=== PATIENT | female | born 1940 | race Hispanic/Latino ===

== ENCOUNTER → 2018-07-12 | Outpatient (CLI) | payer OTHER ==
[~2018-07-12] MED LIST: IOHEXOL-350 75 ML VIAL IV ONE
== END | disposition home or self-care (01) ==
LOC: RAH 10:00
PROVIDERS: ATTEND Internal Medicine Gastroenterology
DX: K44.9 Diaphragmatic hernia without obstruction or gangrene (principal); Z90.49 Acquired absence of other specified parts of digestive tract
CPT/HCPCS: 74178; Q9967

== ENCOUNTER 2018-09-18 07:13 | Day surgery (SDC) | payer OTHER ==
[2018-09-18] VITALS (13 sets, daily range): BP systolic 103–124; BP diastolic 44–82
[~2018-09-18] VITALS: Ht 152.4 cm; Wt 63.5 kg
[~2018-09-18 07:13] MED LIST changes: +AMIO200T5 PO; +BISA-72 PO; -IOHEXOL-350 75 ML VIAL IV ONE; +LEVO112T7 PO; +RIVA20TA PO
[2018-09-18] MEDS ORDERED: SODIUM CHLORIDE 0.9% 1000ML 1,000 ML IV ONE (08:28)
[2018-09-18] MEDS ORDERED: PROPOFOL 10 MG/ML 20ML VIAL IV ONE ×3 (10:20→10:55)
[2018-09-18] MEDS ORDERED: DIATR MEGLU/DIATRIZOATE SODIUM 30 ML BOTTLE ONE (10:29)
[2018-09-18] MEDS ORDERED: IOHEXOL-350 50ML VIAL IV ONE (11:06)
[2018-09-18] MEDS ORDERED: INDOMETHACIN 50 MG SUPP.RECT RC SCH (11:15)
[2018-09-18] MEDS ORDERED: ONDANSETRON HCL MDV 20ML 2 MG/ML VIAL ONE (12:09)
--- NOTE | 2018-09-18 13:35 | NUR ---
PT ARRIVED AAOX3 , STATES SHE FELT NAUSEA, WAS TREATED IN PACE JUST PRIOR TO ARRIVAL, MONITORED PT STATES NAUSEA HAS PASSED. PT STATES NO C/O PAIN S/P PROCEDURE, STATED SHE FELT WEAK, THIS IS HAS BEEN CHRONIC SINCE HER ILLNESS. AT BEDSIDE FOR POST CARE INSTRUCTIONS, INSTRUCTED PT TO START XARELTO ON SUNDAY, AMBULATE WITH ASSISTANCE TODAY NEEDED. INSTRUCTED TO SENIOR TRAINING SPECIALIST ORDER AT DR. BARNETT OFFICE FOR LFTS TODAY OR TOMORROW. INSTRUCTED PT NOT TO EAT OR DRINK FOR 6 HOURS S/P PROCEDURE TO DAY. INSTRUCTED TO START WITH SOFT DIET, PLENTY OF FLUIDS. PT AND VERBALIZED UNDERSTANDING, PT DRESSED, PLACED IN WHEELCHAIR , DRIVEN HOME BY .
== END 2018-09-18 13:35 | disposition home or self-care (01) ==
LOC: DAH 07:13 → ENDO 07:13
PROVIDERS: ATTEND Internal Medicine
DX: K83.1 Obstruction of bile duct (principal); E03.9 Hypothyroidism, unspecified; Z86.010 Personal history of colon polyps; I48.91 Unspecified atrial fibrillation; Z85.09 Personal history of malignant neoplasm of other digestive organs; Z85.850 Personal history of malignant neoplasm of thyroid; K21.9 Gastro-esophageal reflux disease without esophagitis; Z79.899 Other long term (current) drug therapy; Z98.890 Other specified postprocedural states; Z79.01 Long term (current) use of anticoagulants; Z90.710 Acquired absence of both cervix and uterus; K44.9 Diaphragmatic hernia without obstruction or gangrene
CPT/HCPCS: 43276; 74330; 93005; A4606; C1769; C1773; J2704 ×3; J7030; Q9967; 43274; 43275; Q9963

== ENCOUNTER 2018-12-06 07:33 | Day surgery (SDC) | payer OTHER ==
--- NOTE | 2018-12-03 15:24 | NUR ---
NURSING SPOKE PT REGARDING PROC FOR TOMORROW AND PT STATES SHE TOOK XERALTO LAST NIGHT. SPOKE TO LYNDA AT DR LOMBARDI OFFICE REGARDING MEDICATION AND SHE WILL BE KARSTEN PT FOR FUTURE DATE. OFFICE TO NOTIFY PT OF CANCELATION Addendum: 12/03/18 at 1529 by ARTURO CANALES RN Amended: Links added.
[2018-12-06] VITALS (16 sets, daily range): BP systolic 101–155; BP diastolic 36–74
[~2018-12-06 07:33] MED LIST changes: +SODIUM CHLORIDE 0.9% 1000ML 1,000 ML IV ONE
[2018-12-06] MEDS ORDERED: INDOMETHACIN 50 MG SUPP.RECT RC SCH (10:30)
[2018-12-06] MEDS ORDERED: IOHEXOL-350 50ML VIAL IV ONE (10:51)
[2018-12-06] MEDS ORDERED: VERA120T11 PO (11:03)
[2018-12-06] MEDS ORDERED: MIDO10TA PO (11:03)
[2018-12-06] MEDS ORDERED: POTA-79 PO (11:03)
[2018-12-06] MEDS ORDERED: FLEC50TA3 PO (11:03)
[2018-12-06] MEDS ORDERED: NYST15CR TP (11:03)
[2018-12-06] MEDS ORDERED: ZINC56.7 TP (11:03)
[2018-12-06] MEDS ORDERED: BENZ-39 PO (11:03)
[2018-12-10] MEDS ORDERED: NYSTPW TP (00:23)
[2018-12-10] MEDS ORDERED: ACET650S14 RC (00:23)
[2018-12-10] MEDS ORDERED: FAMO1TAB29 PO (00:23)
[2018-12-10] MEDS ORDERED: SULF1TAB42 PO (00:23)
[2018-12-10] MEDS ORDERED: WHEA152P PO (00:23)
[2018-12-10] MEDS ORDERED: DOCU-116 PO (00:23)
[2018-12-10] MEDS ORDERED: ONDA4TAB4 PO (00:23)
[2018-12-10] MEDS ORDERED: ACET-2900 PO (00:23)
[2018-12-17] MEDS ORDERED: BENZ-51 PO (11:47)
[2018-12-17] MEDS ORDERED: RIVA20TA PO (11:47)
[2018-12-17] MEDS ORDERED: Clotrimazole MM (11:47)
[2018-12-17] MEDS ORDERED: BISA5TAB12 PO (11:47)
[2018-12-17] MEDS ORDERED: METO25 PO (11:47)
== END 2018-12-06 15:25 ==
LOC: ENDO 07:33 → DAH 07:33 → ENDO 15:25
PROVIDERS: ATTEND Internal Medicine Gastroenterology
DX: Z46.59 Encounter for fitting and adjustment of other gastrointestinal appliance and device (principal); K83.1 Obstruction of bile duct; E03.9 Hypothyroidism, unspecified; Z86.010 Personal history of colon polyps; I48.91 Unspecified atrial fibrillation; Z85.850 Personal history of malignant neoplasm of thyroid; Z79.01 Long term (current) use of anticoagulants; Z79.899 Other long term (current) drug therapy; Z98.890 Other specified postprocedural states; Z90.710 Acquired absence of both cervix and uterus; K44.9 Diaphragmatic hernia without obstruction or gangrene
CPT/HCPCS: 43264; 43276; 74328; 93005; A4606; C1769; C1773; J7030; Q9967; 43275; 74330

== ENCOUNTER 2018-12-31 18:50 | Inpatient (IN) | payer OTHER ==
[~2018-12-31] VITALS: Ht 154.9 cm; Wt 82.8 kg
[~2018-12-31 18:50] MED LIST changes: -AMIO200T5 PO; +BENZ-51 PO; -BISA-72 PO; +BISA5TAB12 PO; +Clotrimazole MM; +FLEC50TA3 PO; +METO25 PO; +MIDO10TA PO; -SODIUM CHLORIDE 0.9% 1000ML 1,000 ML IV ONE; +ZINC56.7 TP
[2018-12-31] MEDS ORDERED: DEXTROSE 50%-WATER 50 ML DISP.SYRIN IV ONE (18:56)
[2018-12-31] MEDS ORDERED: SODIUM CHLORIDE 0.9% 1000ML 1,000 ML IV ONE ×3 (18:58→23:17)
[2018-12-31 19:20] LABS: EOSINOPHILS % (AUTO) 0.1 % (0.0-8.0); HEMATOCRIT 27.3 % (36-48); LYMPHOCYTES % (AUTO) 6.4 % (21.0-51.0); MEAN CORPUSCULAR HEMOGLOBIN 34.1 pg (27.0-33.0); MEAN CORPUSCULAR HGB CONC 31.7 g/dL (32.0-36.0); MEAN CORPUSCULAR VOLUME 107.3 fL (79-99); MONOCYTES % (AUTO) 0.8 % (3.0-13.0); NEUTROPHILS % (AUTO) 92.7 % (40.0-77.0); PLATELET COUNT (AUTO) 88 K/uL (130-400); RED BLOOD CELL COUNT(AUTO) 2.55 MIL/uL (4.00-5.50); RED CELL DISTRIBUTION WIDTH 22.3 % (11.0-15.5); WHITE BLOOD COUNT (AUTO) 16.1 K/uL (4.8-10.8)
[2018-12-31 19:25] LABS: BILIRUBIN,URINE MODERATE (NEGATIVE); COLOR,URINE YELLOW (YELLOW); GLUCOSE, URINE (UA) NEGATIVE (NEGATIVE); KETONES,URINE 5 mg/dL (NEGATIVE); LEUKOCYTE ESTERASE ,URINE NEGATIVE (NEGATIVE); NITRATE,URINE POSITIVE (NEGATIVE); OCCULT BLOOD,URINE NEGATIVE (NEGATIVE); PROTEIN,URINE 30 mg/dL (NEGATIVE)
[2018-12-31 19:41] LABS: ALBUMIN 1.1 g/dL (3.5-5.0); BILIRUBIN,TOTAL 2.5 mg/dL (0.2-1.0); CREATININE 1.7 mg/dL (0.5-1.5); MAGNESIUM 1.2 mg/dL (1.80-2.40); THYROID STIMULATING HORMONE 5.57 uIU/mL (0.36-3.74); TOTAL PROTEIN, SERUM 5.6 g/dL (6.0-8.3); TROPONIN I 0.06 ng/mL (0.00-0.06)
[2018-12-31 19:44] LABS: POTASSIUM 2.1 mmol/L (3.5-5.1)
[2018-12-31 19:58] LABS: PLATELET MORPHOLOGY COMMENT DECREASED
[2018-12-31 20:06] LABS: APPEARANCE,URINE SLIGHTLY CLOUDY (CLEAR)
[2018-12-31 20:08] LABS: BACTERIA,URINE Moderate /HPF (None Seen); RBC,URINE 0-1 /HPF (0-1); WBC,URINE 0-1 /HPF (0-1)
[2018-12-31 20:09] LABS: YEAST,URINE BUDDING Few /HPF (None Seen)
[2018-12-31 20:12] LABS: INR 2.29 (0.85-1.15); PARTIAL THROMBOPLASTIN TIME 61.9 SEC (26.3-35.5); PROTHROMBIN TIME 23.7 SEC (9.6-11.6)
[2018-12-31] MEDS ORDERED: MAGNESIUM 2GM PREMIX 50ML 50 ML IV ONE ×2 (20:22→20:25)
[2018-12-31] MEDS ORDERED: ZOSYN 3.375GM+NS 50ML 50 ML IV ONE (20:46)
[2018-12-31] MEDS ORDERED: CALCIUM GLUCONATE 1 GM/10 ML VIAL IV ONE (20:48)
[2018-12-31] MEDS: SODIUM CHLORIDE 0.9% 1000ML 1,000 ML IV SCH (21:24)
[2018-12-31] MEDS ORDERED: VANCOMYCIN PROTOCOL PER PHARMACY IV PRN (21:30)
[2018-12-31] MEDS ORDERED: POTASSIUM CHLORIDE 10MEQ/100ML 100 ML IV PRN (21:45)
[2018-12-31] MEDS ORDERED: POTASSIUM CHLORIDE 10% ELIXIR 20 MEQ/15 ML UDCUP PO PRN (21:45)
[2018-12-31] MEDS ORDERED: POTASSIUM CHLORIDE 20 MEQ ERTAB PO PRN (21:45)
[2018-12-31] MEDS ORDERED: LIDOCAINE HCL-MPF 1% 2ML VIAL IVP PRN (21:45)
[2018-12-31] MEDS ORDERED: DEXTROSE 5%-WATER 50 ML IV ONE (21:47)
[2018-12-31] MEDS ORDERED: GLUCAGON 1MG KIT 1 MG ML IM PRN (22:00)
[2018-12-31] MEDS ORDERED: DEXTROSE 50%-WATER 50 ML DISP.SYRIN IV PRN (22:00)
[2018-12-31] MEDS ORDERED: POTASSIUM CHLORIDE 20MEQ/100ML 100 ML IV ONE (22:58)
[2018-12-31] MEDS ORDERED: VANCOMYCIN 1GM+NS 250ML 250 ML IV ONE (23:17)
[2018-12-31] MEDS ORDERED: NOREPINEPHRINE BITARTRATE 1 MG/1 ML ML IV ONE (23:17)
[2018-12-31] MEDS ORDERED: SODIUM CHLORIDE 0.9% 250 ML IV ONE (23:18)
[2018-12-31] MEDS ORDERED: PHARMACY COMMUNICATION MISC SCH (23:45)
[2019-01-01] VITALS (38 sets, daily range): BP systolic 63–147; BP diastolic 26–88
[2019-01-01] MEDS ORDERED: DEXTROSE 50%-WATER 50 ML DISP.SYRIN IV ONE (00:09)
[2019-01-01] MEDS: IPRATROPIUM/ALBUTEROL SULFATE 3 ML SOLUTION IH SCH ×5 (00:32→23:15)
[2019-01-01] MEDS: ZOSYN 3.375GM+NS 50ML 50 ML IV SCH ×3 (05:00→21:13)
[2019-01-01] MEDS ORDERED: ZOSYN 3.375GM+NS 50ML 50 ML IV ONE (05:07)
[2019-01-01 05:42] LABS: BASOPHILS % (AUTO) 0.2 % (0.0-5.0); HEMATOCRIT 25.2 % (36-48); LYMPHOCYTES % (AUTO) 2.4 % (21.0-51.0); MEAN CORPUSCULAR HEMOGLOBIN 35.2 pg (27.0-33.0); MEAN CORPUSCULAR HGB CONC 33.5 g/dL (32.0-36.0); MEAN CORPUSCULAR VOLUME 104.8 fL (79-99); MONOCYTES % (AUTO) 1.7 % (3.0-13.0); NEUTROPHILS % (AUTO) 60.7 % (40.0-77.0); PLATELET COUNT (AUTO) 56 K/uL (130-400); RED BLOOD CELL COUNT(AUTO) 2.41 MIL/uL (4.00-5.50); RED CELL DISTRIBUTION WIDTH 21.6 % (11.0-15.5); WHITE BLOOD COUNT (AUTO) 28.9 K/uL (4.8-10.8)
[2019-01-01 05:44] LABS: CREATININE 1.4 mg/dL (0.5-1.5)
--- NOTE | 2019-01-01 05:46 | NUR ---
PATIENT RECEIVED FROM ER , PATIENT AWAKE, OPENS EYES TO SOUND , MOANS, NODS HEAD YES WHEN ASKED HER NAME, WEAK X 4, 3+ EDEMA TO BLE , PEDAL PULSES CONFIRMED WITH DOPPLER, LUNGS CLEAR, O2 3L NC, ABDOMEN SOFT , SMALL BM IN ADULT BRIEF ON ARRIVAL. CEBALLOS WITH SCANT DARK KULDEEP URINE. PRESENT STATES HE IS THE POA, PATIENT ONLY TAKES XARELTO AT HOME AND LEVOTHYROXINE AND HE DOESN'T KNOW THE DOSES. STATES THE PATIENT HASN'T EATEN IN TWO DAYS.CALL BRUCE IN REACH
[2019-01-01 06:15] LABS: POTASSIUM 2.1 mmol/L (3.5-5.1)
[2019-01-01] MEDS ORDERED: COMPOUND IV REFRIGERATED 1 EACH IVSOLN MISC PRN (07:15)
--- NOTE | 2019-01-01 07:30 | NUR ---
LUE PICC LINE DC'D CATHETER TIP SENT FOR CULTURE.
--- NOTE | 2019-01-01 07:35 | NUR ---
DR. SINGH CALLED AND NOTIFIED OF DECREASED BP AND AFIB 140S WELL LAB RESULTS. PLAN OF CARE DISCUSSED. NEW ORDERS RECEIVED AND NOTED.
[2019-01-01] MEDS ORDERED: POTASSIUM CHLORIDE 20MEQ/100ML 100 ML IV ONE (08:06)
[2019-01-01] MEDS: FAMOTIDINE/PF 20 MG/2 ML VIAL IV SCH ×2 (08:14→21:13)
[2019-01-01] MEDS: SODIUM CHLORIDE 0.9% 1000ML 1,000 ML IV SCH ×3 (08:15→23:17)
[2019-01-01] MEDS ORDERED: LACTATED RINGERS 1000ML IV SCH (08:30)
[2019-01-01] MEDS ORDERED: LACTATED RINGERS 1000ML 1,000 ML IV ONE (08:32)
[2019-01-01 08:48] LABS: ABG BASE EXCESS -10.8 mmol/L (-2.0-3.0); ABG HCO3 10.2 mmol/L (21.0-28.0); ABG OXYGEN SATURATION 97.7 % (95.0-99.0); ABG PCO2 16 mmHg (32-45)
[2019-01-01] MEDS ORDERED: SODIUM BICARB 50MEQ 50ML VIAL IV SCH (08:51)
[2019-01-01] MEDS ORDERED: AMIODARONE HCL 150 MG in DEXTROSE 5%-WATER 100 ML IV PRN (09:00)
[2019-01-01] MEDS ORDERED: LACTATED RINGERS 1000ML 1,000 ML IV SCH (09:00)
[2019-01-01] MEDS ORDERED: AMIODARONE HCL 900 MG in DEXTROSE 5%-WATER 500 ML IV PRN (09:00)
--- NOTE | 2019-01-01 09:00 | NUR ---
DR. TRINIDAD AND DR. BARENTT OFFICE CALLED AND NOTIFIED OF CONSULT.
--- NOTE | 2019-01-01 09:30 | NUR ---
DR. MENDOZA IN TO SEE PT. PLAN OF CARE DISCUSSED. NEW ORDERS RECEIVED AND NOTED.
[2019-01-01] MEDS: ONDANSETRON HCL 4 MG/2 ML VIAL IV PRN ×2 (10:26→14:44)
--- NOTE | 2019-01-01 11:49 | NUR ---
DC PLAN VISITED WITH PATIENT. SPOUSE ANSWERED PATIENT SLEEPING. PATIENT LIVES WITH SPOUSE. INDEPENDENT ABLE TO PERFORM ADL'S. PATIENT HAS NO SERVICES OR DME'S. FEELS SAFE TO RETURN HOME. Addendum: 01/01/19 at 1203 by LEO GRAYSON RN CM Amended: Links added.
--- NOTE | 2019-01-01 12:30 | NUR ---
DR. SINGH AT BEDSIDE TO SEE PT. PLAN OF CARE DISCUSSED WITH . PER MD AND PT TO BE DNR. ORDER IN CHART AND DNR FORM SIGNED BY AND PLACED IN CHART.
[2019-01-01] MEDS ORDERED: LIDOCAINE HCL-MPF 1% 2ML VIAL IVP PRN (12:45)
[2019-01-01] MEDS: POTASSIUM CHLORIDE 20MEQ/100ML 100 ML IV PRN (13:03)
--- NOTE | 2019-01-01 15:30 | NUR ---
DR. SINGH CALLED AND NOTIFIED OF SBP 70S AND DECREASED URINE OUTPUT. LEVOPHED STARTED ORDERED, TITRATING TO KEEP MAP>65.
[2019-01-01] MEDS: NOREPINEPHRINE 4MG/NS 250ML 250 ML IV SCH (15:40)
--- NOTE | 2019-01-01 15:50 | NUR ---
[facility] consult Patient assessed as ordered. Patient with skin tear to left forearm with tegaderm in place. [facility] recommendations submitted. Addendum: 01/01/19 at 1610 by TRAMAINE CANALES RN/ Amended: Links added.
--- NOTE | 2019-01-01 15:55 | NUR ---
DR. DONOVAN IN TO SEE PT. PLAN OF CARE DISCUSSED. NOTIFIED OF BLOOD CULTURE RESULT, MEDICATIONS REVIEWED. NEW ORDERS RECEIVED AND NOTED.
--- NOTE | 2019-01-01 16:39 | NUR ---
RD Notification Pt with Biliary Malignancy. Pt NPO at time of screen. When medically feasible, Rec advance diet as tolerated to Soft and mechanical soft diet, 6 small meals, Ensure as needed. Pt LBM 01/01/19. Pt monitored labs: K 2.1, CO2 12, GFR 39, Ca 6.6, Alb 1.1, Mg 1.20. Noted, BLE 3+ Pitting edema. Pt with Sacral wound, skin tear as per EMR. RD to continue to monitor. Please notify RD as additional nutritional concerns arise. Thank you. Addendum: 01/01/19 at [address] RD Amended: Links added.
[2019-01-01] MEDS ORDERED: GENTAMICIN 80 MG/NS 100 ML PB 100 ML IV SCH (17:00)
--- NOTE | 2019-01-01 18:11 | NUR ---
DR. BARNETT AT BEDSIDE. PLAN OF CARE DISCUSSED. WILL DISCUSS CASE WITH IR AND DECIDE ON PLAN OF CARE.
--- NOTE | 2019-01-01 20:30 | NUR ---
ASSESSMENT RESTING IN BED MANY FAMILY MEMBERS AT BEDSIDE. REMAINS ON LEVOPHED FOR BP SUPPORT. ASSESSMENT COMPLETED SEE FLOW SHEET. Addendum: 01/01/19 at 2049 by ALEJA GONZALES RN RN Amended: Links added.
[2019-01-01] MEDS ORDERED: VANCOMYCIN 750MG + NS 250 ML IV SCH ×2 (21:00)
[2019-01-01] MEDS: ZINC OXIDE OINT 60GM TUBE TP SCH (21:12)
[2019-01-02] VITALS (28 sets, daily range): BP systolic 84–165; BP diastolic 46–86
--- NOTE | 2019-01-02 03:25 | NUR ---
SEIZURE ACTIVITY NOTED WHILE BLOOD BEING DRAWN. JERKY MOVEMENTS OF HEAD AND ARMS AND EYES GAZED UP AND TO RIGHT. AFIB RATE 120 WITH THIS. FSG 113. SKIN WARM AND DRY. AT BEDSIDE AND MADE AWARE OF THIS. CALL PLACED TO ADMITTING MD.
--- NOTE | 2019-01-02 03:30 | NUR ---
LONG DISTANCE BILLING OPERATOR CALL NYASIA MUNOZ,PAC CALLS BACK. INFORMED OF SEIZURE ACTIVITY AND AFIB 120. ORDERS RECEIVED TO MONITOR HER AND CALL BACK IF SHE HAS ADDITIONAL SEIZURE ACTIVITY.
[2019-01-02 03:44] LABS: EOSINOPHILS % (AUTO) 21.2 % (0.0-8.0); HEMATOCRIT 28.2 % (36-48); LYMPHOCYTES % (AUTO) 4.7 % (21.0-51.0); MEAN CORPUSCULAR HEMOGLOBIN 34.5 pg (27.0-33.0); MEAN CORPUSCULAR HGB CONC 32.8 g/dL (32.0-36.0); MEAN CORPUSCULAR VOLUME 104.9 fL (79-99); MONOCYTES % (AUTO) 3.6 % (3.0-13.0); NEUTROPHILS % (AUTO) 70.5 % (40.0-77.0); NUCLEATED RED BLOOD CELLS 0.1 % (0.0-0.19); PLATELET COUNT (AUTO) 37 K/uL (130-400); RED BLOOD CELL COUNT(AUTO) 2.69 MIL/uL (4.00-5.50); RED CELL DISTRIBUTION WIDTH 21.7 % (11.0-15.5)
[2019-01-02] MEDS: NOREPINEPHRINE 4MG/NS 250ML 250 ML IV SCH (03:44)
[2019-01-02 03:52] LABS: WHITE BLOOD COUNT (AUTO) 32.8 K/uL (4.8-10.8)
[2019-01-02 03:54] LABS: ALBUMIN 1.1 g/dL (3.5-5.0); CREATININE 1.5 mg/dL (0.5-1.5); MAGNESIUM 1.3 mg/dL (1.80-2.40); PHOSPHORUS 2.5 mg/dL (2.5-4.9); TOTAL PROTEIN, SERUM 5.9 g/dL (6.0-8.3)
[2019-01-02] MEDS: POTASSIUM CHLORIDE 20MEQ/100ML 100 ML IV PRN ×2 (04:05→08:33)
[2019-01-02 04:23] LABS: BAND NEUTROPHILS % (MANUAL) 5 % (0-2); LYMPHOCYTES % (MANUAL) 5 % (22-44); MAN.DIFF COMMENT-IMPRESSION MANUAL DIFFERENTIAL; MONOCYTES % (MANUAL) 4 % (2-9); SEGMENTED NEUTROPHILS % 86 % (40-70)
[2019-01-02] MEDS: ZOSYN 3.375GM+NS 50ML 50 ML IV SCH ×3 (05:16→22:44)
[2019-01-02] MEDS: IPRATROPIUM/ALBUTEROL SULFATE 3 ML SOLUTION IH SCH ×3 (06:22→18:30)
[2019-01-02] MEDS ORDERED: MAGNESIUM 2GM PREMIX 50ML 50 ML IV PRN (08:30)
[2019-01-02] MEDS: FAMOTIDINE/PF 20 MG/2 ML VIAL IV SCH ×2 (08:32→22:44)
[2019-01-02] MEDS: METOPROLOL TARTRATE 1 MG/ML 5ML VIAL IV PRN (08:34)
[2019-01-02] MEDS: METOPROLOL TARTRATE 25 MG TAB PO SCH ×2 (09:00→21:00)
[2019-01-02] MEDS: LEVETIRACETAM 250 MG in SODIUM CHLORIDE 0.9% 100 ML IV SCH (12:15)
--- NOTE | 2019-01-02 12:20 | NUR ---
Patient's and family came to nurses station asking for patient's care to be changed to comfort care only, hospice care. Informed that nursing will call MDs. Dr Peguero and Dr Steven hernandez.
--- NOTE | 2019-01-02 12:25 | NUR ---
Dr Sudhir quinonez with family's wishes.
[2019-01-02] MEDS ORDERED: COMPOUND IV MISC 1 EACH IVSOLN MISC PRN (12:30)
--- NOTE | 2019-01-02 12:30 | NUR ---
Dr Johns paged. Per Dr Ying's note, he is okay with patient being place on comfort care.
--- NOTE | 2019-01-02 12:39 | NUR ---
Dr Harris ordered CM for Hospice evaluation.
--- NOTE | 2019-01-02 12:45 | NUR ---
Dr Johns office returned page, informed of family's decision, office staff state that Dr Johns will call back if she has further questions.
[2019-01-02] MEDS: SODIUM CHLORIDE 0.9% 1000ML 1,000 ML IV SCH ×2 (12:50→20:16)
--- NOTE | 2019-01-02 15:05 | NUR ---
DC PLAN VISITED WITH PATIENT AND SPOUSE. PATIENT HAS SEVERAL CO MORBIDITIES AT THIS TIME. SPOUSE IS ASKING ABOUT INPATIENT REHAB. GOT SHRUTHI FOR [facility]. CALLED SAID THEY WILL SENT [facility]. INFO SENT TO [employer] FOR EVAL. TRIED TO GET OOH DNR SPOUSE NOT READY. DID GIVE HIM INFO FOR [facility]IVATE [facility] AND [facility] COMPANIES AND HOSPICE HOMES. KRISTI WILL CONTINUE TO FOLLOW. Addendum: 01/02/19 at 1507 by LEO GRAYSON RN CM Amended: Links added.
--- NOTE | 2019-01-02 16:00 | NUR ---
Dr Adamson in ICU aware of family's decision.
--- NOTE | 2019-01-02 16:51 | NUR ---
Patient's family met with [facility] to discuss services and family agrees to inpatient hospice. [facility] states a nurse will be out to see patient in the next 1-2 hours.
--- NOTE | 2019-01-02 17:19 | NUR ---
Dr Johns in ICU, updated on family's decision, no new orders.
--- NOTE | 2019-01-02 17:54 | NUR ---
Dr Ying in to see patient, updated, no orders at this time.
--- NOTE | 2019-01-02 19:50 | NUR ---
MD CALL C/O LEG CRAMPS. ONLY MORPHINE ORDERED AND MAC MURRELL BEEPED FOR ORDERS.
[2019-01-02] MEDS ORDERED: DIAZEPAM 5 MG/ML 2 ML SYG IV PRN ×2 (20:00→20:15)
--- NOTE | 2019-01-02 20:04 | NUR ---
ASSESSMENT RESTING IN BED. AT BEDSIDE. ASSESSMENT COMPLETED SEE FLOW SHEETS. SCD ON RT LEG REMOVED FOR NOW DUE TO LEG CRAMPS. ENCOURAGED TO CALL FOR WANTS OR NEEDS.
--- NOTE | 2019-01-02 20:30 | NUR ---
TRANSFERRED from 210: 2024: Report received from Magalie GERMAIN 2029: Pt. transferred to floor via bed. Pt. fully awake and responsive with a slurred speech. Pt. able to smile , but looking weak. Attached to O2 at 3LPM via NC with O2Sat at 93%. Respiration even and unlabored. No cough. Assessment done ( see flow sheet). With IVF of NS 1L at 10ml/hr thru port a cath at right chest and IV site to right wrist #22 gauge- patent and intact. Has elliott cath, Fr. 16 attached to urometer bag draining a clear light orange colored urine. Family was with the patient. Talked to the patient and family. Queries of family entertained. Verbalized understanding.Comfort measures provided. SCD refused to right leg due to leg cramps. Pt. already placed on DNR code. [facility] still on the process. Kept monitored and observed for any unusual changes. No apparent distress noted at this time. Cared for.
--- NOTE | 2019-01-02 20:35 | NUR ---
REPORT CALLED TO MARCELLUS GONSALES FOR TRANSFER TO [facility].
--- NOTE | 2019-01-02 20:43 | NUR ---
MOVE BY BED TO 321 WITH FAMILY. NURSE IN ROOM TO RECEIVE HER.
[2019-01-02] MEDS: ZINC OXIDE OINT 60GM TUBE TP SCH (21:00)
[2019-01-03] MEDS: LEVETIRACETAM 250 MG in SODIUM CHLORIDE 0.9% 100 ML IV SCH (00:15)
[2019-01-03] MEDS: METOPROLOL TARTRATE 1 MG/ML 5ML VIAL IV PRN (03:51)
[2019-01-03 03:56] VITALS: BP 136/76
[2019-01-03] MEDS: MORPHINE SULFATE 2 MG/ML 1ML SYG IVP PRN ×2 (04:00→10:45)
[2019-01-03 04:58] LABS: HEMATOCRIT 26.7 % (36-48); MEAN CORPUSCULAR HEMOGLOBIN 35.3 pg (27.0-33.0); MEAN CORPUSCULAR HGB CONC 34.4 g/dL (32.0-36.0); MEAN CORPUSCULAR VOLUME 102.6 fL (79-99); NUCLEATED RED BLOOD CELLS 1.4 % (0.0-0.19); PLATELET COUNT (AUTO) 29 K/uL (130-400); RED CELL DISTRIBUTION WIDTH 20.9 % (11.0-15.5)
[2019-01-03 05:19] LABS: BAND NEUTROPHILS % (MANUAL) 1 % (0-2); LYMPHOCYTES % (MANUAL) 20 % (22-44); MAN.DIFF COMMENT-IMPRESSION MANUAL DIFFERENTIAL; METAMYELOCYTES % 2 % (0-0); PROMYELOCYTES % 3 (0-0); REACTIVE LYMPHOCYTES 3 % (0-0); SEGMENTED NEUTROPHILS % 71 % (40-70)
[2019-01-03 05:20] LABS: ALBUMIN 1.2 g/dL (3.5-5.0); BILIRUBIN,TOTAL 3.5 mg/dL (0.2-1.0); CREATININE 1.2 mg/dL (0.5-1.5); MAGNESIUM 2.2 mg/dL (1.80-2.40); PHOSPHORUS 2.5 mg/dL (2.5-4.9); POTASSIUM 3.2 mmol/L (3.5-5.1); TOTAL PROTEIN, SERUM 5.9 g/dL (6.0-8.3)
[2019-01-03] MEDS: ZOSYN 3.375GM+NS 50ML 50 ML IV SCH (05:39)
[2019-01-03] MEDS ORDERED: LEVOTHYROXINE 112 MCG TABLET PO SCH (06:30)
--- NOTE | 2019-01-03 09:30 | NUR ---
Patient awake and alert with touching and speaking but patient only able to mumble. and family at bedside. Assessed patient head to toe. Lungs coarse to all lung lobes, respirations 22 and tachynpnea at times. Patient warm on touch. Sanger removed. Pt refused SCD on and VS this Am. Pending [place] [facility] nurse for assessment. Family instructed to call nurse if any questions or concerns using call light.
--- NOTE | 2019-01-03 10:00 | NUR ---
IN HOSPICE DENIED Sw notified by [facility] that pt was referred and evaluated yesterday for in hospice, but pt did not meet criteria for admission. Pt is to be re evaluated today. SW spoke to who states that pt was very restless last night and in a lot of pain and he feels she is not stable to be moved. Pt appears very comfortable sleeping in her bed. ELIF spoke to Bharti nurse. Per nurse pt was medicated yesterday at 20:13 with Valium for leg cramps and given morphine at 4:am. Nurse states pt is stable and comfortable, no complaints of pain or respiratory distress. Elif spoke to Pedro at [facility] and discussed above. Per Pedro Baker RN will re evaluate pt this am and discuss Plan B with family. Pedro states that family was not open to placement or home with hospice yesterday and feels that they will not want it today either. Per Pedro no bed available at any of the hospice house at this time, so pt may have no place to go until early next week. Elif spoke to MAC Marshall and explained situation. Joanna understanding that pt may need to stay until alternate plan secured and that may be next week vs pt passing before plans secured. Elif informed Dawn, CM and CMD
[2019-01-03] MEDS: FAMOTIDINE/PF 20 MG/2 ML VIAL IV SCH (10:44)
--- NOTE | 2019-01-03 11:02 | NUR ---
INPT HOSPICE ACCEPTED Sw met with MARCELLUS Baker at [place]. Per Olivia, she evaluated pt and pt is now c/o pain, rubbing abdomen and moaning. Olivia working on admission of patient. Nithya at [employer] [facility] notified of admission. CM Dawn aware of above as well
--- NOTE | 2019-01-03 11:51 | NUR ---
Pt turned to right side. tolerated well. Linen dry. Pt in no distress. Asleep
== END 2019-01-03 09:59 | disposition hospice, inpatient (51) | DRG 871 ==
LOC: EDH 18:50 → EDHIP 20:42 → 2BH 01-01 05:41 → 3DH 01-02 20:50
PROVIDERS: ADMIT Internal Medicine; ATTEND Internal Medicine
DX: A41.9 Sepsis, unspecified organism (principal); E43 Unspecified severe protein-calorie malnutrition; R65.21 Severe sepsis with septic shock; E11.641 Type 2 diabetes mellitus with hypoglycemia with coma; D61.818 Other pancytopenia; N17.9 Acute kidney failure, unspecified; K83.09 Other cholangitis; E87.2 Acidosis; I48.92 Unspecified atrial flutter; Z51.5 Encounter for palliative care; Z66 Do not resuscitate; R56.9 Unspecified convulsions; E86.1 Hypovolemia; I48.91 Unspecified atrial fibrillation; E03.9 Hypothyroidism, unspecified; N18.9 Chronic kidney disease, unspecified; E11.22 Type 2 diabetes mellitus with diabetic chronic kidney disease; I12.9 Hypertensive chronic kidney disease with stage 1 through stage 4 chronic kidney disease, or unspecified chronic kidney disease; E66.9 Obesity, unspecified; E83.42 Hypomagnesemia; E87.6 Hypokalemia; Z68.34 Body mass index [BMI] 34.0-34.9, adult; Z74.01 Bed confinement status; Z79.01 Long term (current) use of anticoagulants; Z79.4 Long term (current) use of insulin; Z85.05 Personal history of malignant neoplasm of liver; Z85.07 Personal history of malignant neoplasm of pancreas; Z85.850 Personal history of malignant neoplasm of thyroid; Z92.21 Personal history of antineoplastic chemotherapy; Z83.3 Family history of diabetes mellitus; Z82.49 Family history of ischemic heart disease and other diseases of the circulatory system; Z80.9 Family history of malignant neoplasm, unspecified
CPT/HCPCS: 36415; 36600; 70450; 71045; 76705; 80048; 80053; 81001; 82140; 82550; 82803; 82948; 83605; 83690; 83735; 83874; 84100; 84132; 84145; 84443; 84484; 85025; 85027; 85060; 85610; 85730; 87040; 87070; 87077; 87088; 87186; 93005; 94640; 94664; 95816; A4357; G0378; J0610; J1580; J1953; J2405; J2543; J3360; J3370; J3475; J3480; J3490; J7030; J7060; J7070; J7120

== ENCOUNTER 2019-01-03 10:00 | Inpatient (IN) | payer OTHER | END 2019-01-04 11:47 | disposition EXP | LOC: 3DH 10:00 | DX: C22.1 Intrahepatic bile duct carcinoma (principal) ==